=== PATIENT | male | born 1990 | race Hispanic/Latino ===

== ENCOUNTER 2024-12-22 10:18 | Emergency (ER) | payer OTHER ==
[~2024-12-22] VITALS: Ht 170.2 cm; Wt 76.2 kg
[2024-12-22 11:20] VITALS: PULSE 80; RESP 18; TEMP 97.9; O2SAT 98
== END 2024-12-22 11:43 | disposition home or self-care (01) ==
LOC: ER 10:20
DX: M25.562 Pain in left knee (principal); M25.462 Effusion, left knee; Y93.02 Activity, running
CPT/HCPCS: 99283